=== PATIENT | female | born 2000 | race Caucasian/White ===

== ENCOUNTER 2020-12-27 15:14 | Emergency (ER) | payer OTHER, SELFPAY ==
[2020-12-27 16:28] VITALS: BP 121/81; PULSE 73; RESP 16; TEMP 36.8; O2SAT 100; BMI 19.1
--- NOTE | 2020-12-27 16:29 | ED_ITS ---
HPI - URI/Sore Throat General Chief Complaint: General Medical Stated Complaint: minor cold Time Seen by Provider: 12/27/20 16:29 Source: patient Mode of arrival: ambulatory Limitations: no limitations History of Present Illness MD elicited complaint: rhinorrhea and nasal congestion Onset (ago): day(s) (A FEW DAYS IMPROVED) Consistency: constant and improved Severity: mild Description of mucous: clear and watery Able to tolerate fluids by mouth: Yes Exacerbating factors: nothing Relieving factors: nothing Associated symptoms: denies other symptoms Treatments prior to arrival: none Related Data Previous Rx's Medication Instructions Recorded azithromycin See Rx Instructions .ROUTE 12/27/20 .COMPLEX #6 tab Allergies Allergy/AdvReac Type Severity Reaction Status Date / Time No Known Allergies Allergy Verified 12/27/20 16:31 [No Known Allergies*] Review of Systems Review of Systems: Constitutional : No Fever, No Chills, No fatigue, No Malaise ENT/Mouth : Positive runny nose/nasal congestion, No sore throat Eyes: No Discharge Cardiovascular : No Chest Pain, No SOB Respiratory : No Cough, No Sputum, No Wheezing, No Smoke Exposure, No Dyspnea Gastrointestinal : No Nausea, No Vomiting, No Diarrhea Genitourinary : No irregular bleeding, No Dysuria, No Urinary Frequency, No Hematuria, No Urinary Incontinence, No Urgency, No Flank Pain, Musculoskeletal : No Myalgia Skin : No rash Neuro : No Headache Yes all other systems are reviewed and are negative [facility] Past Medical History Attestation statement: The following information was validated with the patient. Medical History Patient denies significant medical history Social History Social History Patient : No Physical Exam Vital Signs: Vital Signs: Last Vital Signs Temp 98.3 F 12/27/20 16:28 Pulse 73 12/27/20 16:28 Resp 16 12/27/20 16:28 BP 121/81 12/27/20 16:28 Pulse Ox 100 12/27/20 16:28 Body Mass Index 19.1 vital signs have been reviewed as normal and appeared to be correct. Blood pressure normal. Heart rate normal. Respiration rate normal. Temperature normal. Oxygen saturation normal. Appearance: Alert. Oriented X3. No acute distress. Head: Normal external exam. Normocephalic. Atraumatic. Eyes: PERRLA. EOMI. Conjunctiva and sclera normal. Eyelids normal. ENT: EAC normal. TM's Normal. Pharynx normal. Uvula midline. Moist mucous membranes. No trismus noted. No drooling noted. No muffled voice noted. Neck: Normal inspection. Neck supple. FROM. No adenopathy. Thyroid Normal. No meningeal signs. No neck mass noted. CVS: Normal heart rate and rhythm. Heart sound normal. Pulses normal throughout. No murmurs/rales/gallops. Respiratory: No respiratory distress. Painless inspiration. Breath sounds normal. No wheezes/rales/rhonchi noted. Chest nontender. No accessory muscle usage noted or decreased air movement noted. Back: Full range of motion noted. No rashes/lesion/induration/fluctuance or signs of infection noted. Skin: Skin warm and dry. Normal skin color. Normal skin turgor. No r ashes/lesions/lacerations noted. Extremities: No lower extremity edema. Extremities exhibit normal range of motion. Extremities nontender. Neuro: Oriented X 3. No motor deficit. No sensory deficit. Reflexes normal. Normal steady gait. No focal neuro deficits noted. Course Course Course Narrative: 20-year-old female presenting to the ED for COVID swab she reports she has had a runny nose/nasal congestion for the past few days although improving reports that she had a sore throat which resolved. Requesting COVID swab. Reports that she was vaccinated for COVID. Will DC home with antibiotics and symptomatic treatment and will call her with COVID results if negative and positive will DC at this time. Patient understands agrees with this plan. MDM - URI/Sore Throat Medical Records Attestation: I reviewed the patient's medical records. Lab Data Attestation: I reviewed the patient's lab results. Discharge Plan Discharge Clinical Impression: Upper respiratory infection Patient Disposition: Home, Self-Care Instructions: Upper Respiratory Infection (ED) Additional Instructions: Based on your symptoms and history we have sent a COVID-19. Although your RESULT IS PENDING at this time. RESULTS should return within 2 hours. At this time you will be contacted with either NEGATIVE OR POSITIVE results. -Please wait until we contact you for your results. At this time you will be okay for discharge. Please plan for self quarantine for up to 14 days. Do not expose yourself to others. You may not go to work. If testing does come back negative you may return to activities as long as you are no longer having any symptoms for at least 3 days. Please continue to follow cold instructions and wash your hands frequently. You may take Tylenol as directed on the bottle for pain or fever. CDC Guidelines for home isolation: - Stay away from others - WEAR A MASK if you are sick AND STAY HOME - Cover your mouth and nose with a tissue when you cough or sneeze. Dispose of tissues in a lined trash can and wash your hands immediately with soap and water for at least 20 seconds. If soap and water are not available, clean hands with alcohol-based hand criminal justice faculty that contains at least 60% alcohol. - Clean your hands often with soap and water for at least 20 seconds - Avoid touching your eyes, nose and mouth with unwashed hands - Do not share dishes, drinking glasses, cups, eating utensils, towels, or bedding with other people in your home. After using these items, wash them thoroughly with soap and water or put in the account development executive. - Clean high-touch surfaces in your isolation area ( sick room and bathroom) every day; let a caregiver clean and disinfect high-touch surfaces in other areas of the home. Clean the area or item with soap and water or another detergent if it is dirty. Then, use a household disinfectant. - Limit contact with pets and animals: If you must care for a pet, wash your hands before and after interacting with them). Prescriptions: New azithromycin 250 mg tablet See Rx Instructions .ROUTE .COMPLEX Qty: 6 RF: 0 Referrals: ED Physician,Generic [Emergency Provider] - 2 days (YOUR PCP) Stand Alone Forms: Work/School Release Print Language: Uruguayan
[2020-12-27 17:03] LABS: COVID-19 Test Negative (Negative); IDNOW Serial# 9DD0AD1C
== END 2020-12-27 17:00 | disposition home or self-care (01) ==
PROVIDERS: Physician Assistant Medical; Emergency Provider Emergency Medicine; PCP Pediatrics
DX: J06.9 Acute upper respiratory infection, unspecified (principal); J34.89 Other specified disorders of nose and nasal sinuses; Z20.822 Contact with and (suspected) exposure to COVID-19
CPT/HCPCS: 36415; 87635; 99283

== ENCOUNTER 2021-11-23 21:41 | Emergency (ER) | payer SELFPAY ==
[2021-11-23 21:56] VITALS: BP 119/77; PULSE 86; RESP 18; TEMP 36.9; O2SAT 100; BMI 16.6
[2021-11-23 23:27] VITALS: BP 120/76; PULSE 92; RESP 16; TEMP 36.8
--- NOTE | 2021-11-23 23:34 | ED_ITS ---
HPI - General Adult General Chief complaint: General Medical Stated complaint: std screening Time Seen by Provider: 11/23/21 23:34 Source: patient Mode of arrival: ambulatory Limitations: no limitations History of Present Illness HPI narrative: 21-year-old presenting for STD testing and treatment. Patient tells me that she is having some white vaginal discharge and she would like to get treated for STDs that she has had multiple sexual partners without protection and she is concerned for potential STDs, no confirmed cases of partners however she does have a concern. Patient denies vaginal bleeding, pain with intercourse. No history of STDs in the past. Patient denies fevers, chills, back pain, nausea, vomiting, flank pain, abdominal pain, chest pain, shortness of breath. Related Data Previous Rx's Medication Instructions Recorded azithromycin 250 mg tablet See Rx Instructions PO .COMPLEX #6 12/27/20 tabs doxycycline hyclate 100 mg capsule 100 mg PO BID 7 days #14 caps 11/23/21 fluconazole 150 mg tablet 150 mg PO DAILY #1 tab 11/23/21 metronidazole 500 mg tablet 500 mg PO BID 7 days #14 tabs 11/23/21 Allergies Allergy/AdvReac Type Severity Reaction Status Date / Time No Known Allergies Allergy Verified 12/27/20 16:31 [No Known Allergies*] Review of Systems Review of Systems: Constitutional : No Weight loss, No Fever, No Chills, No Fatigue, No Malaise ENT/Mouth : No sore throat, No Rhinorrhea Eyes: No Eye Pain, No Swelling, No Redness Cardiovascular : No Chest Pain, No SOB, No Dyspnea on Exertion, No Orthopnea, No Edema, No Palpitations Respiratory : No Cough, No Sputum, No Wheezing Gastrointestinal : No Nausea, No Vomiting, No Diarrhea, No Constipation, No abdominal Pain, No Hematochezia, No Melena Genitourinary : No Dysuria, No Urinary Frequency, No Hematuria, + vaginal disch arge Musculoskeletal : No joint pain, No Myalgias, No Joint Swelling Skin : No Skin Lesions, No rash Neuro : No Weakness, No Numbness, No Dizziness, No Headache All other systems reviewed and are negative Yes all other systems are reviewed and are negative PMFSH Past Medical History Attestation statement: The following information was validated with the patient. Source: old records reviewed and nursing notes reviewed Medical History Patient denies significant medical history Social History Social History Advance Directives: No Advance Directives Information Provided: No Physical Exam ED Vital Signs: Vital Signs - 24 hr 11/23/21 21:56 11/23/21 23:27 Temperature 98.5 F 98.3 F Pulse Rate 86 92 Respiratory Rate 18 16 Blood Pressure 119/77 120/76 Pulse Oximetry 100 Oxygen Delivery Method Room Air BiPAP BMI result Body Mass Index 16.6 VSS Appearance: Alert.? Oriented X3.? No acute distress.? Head: Normocephalic, atraumatic, no step-offs or deformities Eyes: Pupils equal, round and reactive to light.? ENT: Pharynx normal.? Neck: Normal inspection.? Neck supple.? CVS: Normal heart rate and rhythm.? Pulses normal.? Respiratory: No respiratory distress.? Breath sounds normal.? Abdomen: Soft and nontender.? Skin: Skin warm and dry.? Normal skin color.? Normal skin turgor.? Sensative: deffered Extremities: No lower extremity edema.? No calf ttp. 5/5 strength to bilateral upper and lower extremities Back: No midline tenderness, no C-spine tenderness, full range of motion, no CVA tenderness bilaterally Neuro: Oriented X 3.? No motor deficit.? No sensory deficit. CN 2-12 intact Course Reevaluation(s) Reevaluation #1: At this time samples for gonorrhea and chlamydia have been obtained. Patient has been prophylactically treated. Patient will be discharged home with strict return precautions and, advised her to return with new or worsening symptoms. Also advised her to get full panel STD testing. Educated on safe sex. At this time I feel comfortable discharge home with PCP follow-up. Time: 00:06 Medical Decision Making MDM Narrative Medical decision making narrative: 2330 21 yo f presents requesting STD testing, multiple sexual partners, would like prophylaxis treatment . PE benign. Deferred sensitive exam As she is giving samples by urine. Denies pelvic pain, pain with intercourse unlikely PID. No vaginal bleeding. Plan- educate and treat Medical Records Medical records reviewed: Yes I reviewed the patient's medical records. Lab Data Lab results reviewed: Yes I reviewed the patient's lab results. Critical Care Time Critical Care Time Critical Care Time: No Discharge Plan Discharge Clinical Impression: Encounter for assessment of STD exposure Patient Disposition: Home, Self-Care Additional Instructions: Take your medications as prescribed. If you were prescribed antibiotics today, it is important that you take your medication to their entirety, do not skip any doses, do not finish them early. Follow-up with your primary care provider this week. Return to the emergency department with new or worsening symptoms. Such as fevers, chills, chest pain, shortness of breath, nausea, vomiting, dizziness, headache, vision changes, lethargy In case of emergency call 911 Please practice safe sex, wear protection, as discussed. You were treated here today with ceftriaxone, a medication that treats gonorrhea. I have sent to your pharmacy Metronidazole that covers trichomonas, and Doxycycline which covers for chlamydia. Please be reevaluated by a healthcare provider after completing your antibiotics. Do not stop them early, do not skip any doses. Until you are reevaluated by a health care provider please practice safe sex as disucussed. Please also have a conversation with your sexual partners.? I also advise you to obtain full panel STD testing to test for other STDs including HIV, Hepatitis B & C and syphilis with your PCP or a local clinic. Prescriptions: New doxycycline hyclate 100 mg capsule 100 mg PO BID 7 Days Qty: 14 0RF metronidazole 500 mg tablet 500 mg PO BID 7 Days Qty: 14 0RF fluconazole 150 mg tablet 150 mg PO DAILY Qty: 1 0RF No Action azithromycin 250 mg tablet See Rx Instructions .ROUTE .COMPLEX Qty: 6 0RF Rx Instructions: take 500 mg today (day 1), then 250 mg for 4 days (days 2-5) Referrals: Physician,None [Primary Care Provider] - 2 days Stand Alone Forms: Work/School Release
[2021-11-24] MEDS: metroNIDAZOLE 500 MG TABLET PO (00:16)
[2021-11-24] MEDS: cefTRIAXone sodium 500 MG, Lidocaine HCl 1 % MPF 1 ML IM (00:17)
[2021-11-24 04:40] LABS: CT PCR NOT DETECTED (Not Detect.); NG PCR NOT DETECTED (Not Detect.)
== END 2021-11-24 00:28 | disposition home or self-care (01) ==
PROVIDERS: Emergency Provider Emergency Medicine
DX: N89.8 Other specified noninflammatory disorders of vagina (principal); Z20.2 Contact with and (suspected) exposure to infections with a predominantly sexual mode of transmission
CPT/HCPCS: 87491; 87591; 96365; 99283; 99284; J0696

== ENCOUNTER 2025-02-20 07:57 | Emergency (ER) | payer MEDICAID, SELFPAY ==
--- OUTSIDE RECORDS SUMMARY | 2025-02-20 11:00 | XMS_ITS | Encounter Summary ---
Author Organization [facility] Address [address] [place] [phone] Phone Care Team Providers Care Cataract Lens Generator Name Role Phone Fannie Douglas MD Primary Care Provider Encounter Details Date Type Department Care Team ([facility] st Contact Info) Description 01/21/2017 Conversion Encounter [facility] [place] [address] [place] [address] Social History Tobacco Use Types Packs/Day Years Used Date Smoking Tobacco: Never Assessed Comments Unknown Sex and Gender Information Value Date Recorded Sex Assigned at Not on file Legal Sex Female 4:45 PM EDT Gender Identity Not on file Sexual Orientation Not on file documented as of this encounter Plan of Treatment Not on file documented as of this encounter Visit Diagnoses Not on filedocumented in this encounter Care Teams Cataract Lens Generator Relationship Specialty Start Date End Date Fannie Douglas MD [address] [place] [address] PCP - General 01/15/17 08/25/22 documented as of this encounter
--- OUTSIDE RECORDS SUMMARY | 2025-02-20 11:00 | XMS_ITS | Encounter Summary ---
Author Organization [facility] Address [address] [place] [phone] Phone Care Team Providers Care Consumer Safety Inspector Name Role Phone Fannie Douglas MD Primary Care Provider Encounter Details Date Type Department Care Team (Late st Contact Info) Description 03/25/2010 Documentation [facility] [place] Family Medicine [address] [place] [address] Family Medicine, Physician [address] [id number] Social History Tobacco Use Types Packs/Day Years [...] on filedocumented in this encounter Care Teams Consumer Safety Inspector Relationship Specialty Start Date End Date Fannie Douglas MD [address] [place] [address] [place] [address] PCP - General 01/15/17 08/25/22 documented as of this encounter
--- OUTSIDE RECORDS SUMMARY | 2025-02-20 11:00 | XMS_ITS | Clinical Summary ---
Author Organization [facility] Address [address] [place] [phone] Phone Care Team Providers Care Sweatband Drummer Name Role Phone Unavailable Primary Care Provider Unavailabl e Immunizations Immunization Administration Dates Next Due DTaP 5 03/07/2004, 4,2000, 001,2000 Hep A, ped/adol 12/05/2013 Hep B, ped/adol 2000,2000,2000 Hib (PRP-T) 2000,2000,2000 IPV 03/07/2004, 4,2000, 000 Influenza Split 03/30/2012,04/17/2010 MMR 03/07/2004,06/15/2001 Meningococcal Conj (Menactra) MCV4P 03/30/2012 Pneumococcal Conjugate 2000,2000, Tdap 03/30/2012 Varicella 06/15/2001 Family History Relation Name Status Comments Father Alive Father: Alive a nd well Mother Alive Mother: Alive a nd well Paternal Grandfather Alive Paterna l grandfather: Diabetes mellitus Social History Tobacco Use Types Packs/Day Years Used Date Smoking Tobacco: Never Assessed Comments Unknown Sex and Gender Information Value Date Recorded Sex Assigned at Not on file Legal Sex Female 4:45 PM EDT Gender Identity Not on file Sexual Orientation Not on file Last Filed Vital Signs Vital Sign Reading Time Taken Comments Blood Pressure 100/56 12/05/2013 12:00 AM EDT Pulse - - Temperature 36.5 C (97.7 F) 10/12/2012 12:00 AM EDT Respiratory Rate - - Oxygen Saturation - - Inhaled Oxygen Concentration - - Weight 33.3 kg (73 lb 8 oz) 12/05/2013 12:00 AM EDT Height 144.8 cm (4' 9 ) 12/05/2013 12:00 AM EDT Body Mass Index 15.91 12/05/2013 12:00 AM EDT Plan of Treatment Health Maintenance Due Date Last Done Comments Varicella Vaccines (2 of 2 - 2-dose childhood series) 04/04/2004 06/15/2001 Hepatitis A Vaccines (2 of 2 - 2-dose series) 06/07/2014 12/05/2013 HPV Vaccines (1 - 3-dose series) 02/17/2015 DTaP,Tdap,and Td Vaccines (6 - Td or Tdap) 03/30/2022 03/30/2012, 03/07/2004, 09/20/2003, Additional history exists Influenza Vaccines (#1) 2025 03/30/2012, 04/17 COVID-19 Vaccine ( season) 2025 Pneumococcal Vaccine Aged Out 2000, 2000, 2000 No longer eligible based on patient's age to complete this topic HIB Vaccines Aged Out 2000, 06/07, 2000 No longer eligible based on patient's age to complete this topic Hepatitis B Vaccines Completed 2000, 2000, 2000 IPV Vaccines Completed 03/07/2004, 09/05, 2000, Additional history exists MMR Vaccines Completed 03/07/2004, 06/15/2001 Meningococcal Vaccine Aged Out 03/30/2012 No john jann eligible based on patient's age to complete this topic Men B Vaccine Aged Out No longer elig ible based on patient's age to complete this topic
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
--- OUTSIDE RECORDS SUMMARY | 2025-02-20 11:00 | XMS_ITS | Encounter Summary ---
Author Organization [facility] Address [address] [place] [phone] Phone Care Team Providers Care Blast Furnace Supervisor Name Role Phone Fannie Douglas MD Primary Care Provider Encounter Details Date Type Department Care Team (Late st Contact Info) Description 04/08/2010 Documentation [facility] [place] [address] [place] [address] Family Medicine, Physician [address], [place] [phone] Social History Tobacco Use Types Packs/Day Years [...] on filedocumented in this encounter Care Teams Blast Furnace Supervisor Relationship Specialty Start Date End Date Fannie Douglas MD [address] [place] [address] [place] [id number] PCP - General 01/15/17 08/25/22 documented as of this encounter
== END 2025-02-20 09:12 | disposition left against medical advice (07) ==
PROVIDERS: Emergency Provider Emergency Medicine; PCP Internal Medicine
DX: B37.9 Candidiasis, unspecified (principal); Z53.21 Procedure and treatment not carried out due to patient leaving prior to being seen by health care provider